=== PATIENT | female | born 2005 | race Two or more races ===

== ENCOUNTER 2025-02-06 14:14 | Emergency (ER) | payer SELFPAY | END 2025-02-06 15:11 | disposition left against medical advice (07) | LOC: ER 14:14 | DX: T75.89XA Other specified effects of external causes, initial encounter (principal); Z53.21 Procedure and treatment not carried out due to patient leaving prior to being seen by health care provider; X58.XXXA Exposure to other specified factors, initial encounter; Y93.89 Activity, other specified; Y92.89 Other specified places as the place of occurrence of the external cause; Y99.8 Other external cause status ==